=== PATIENT | female | born 1985 | race Caucasian/White ===

== ENCOUNTER → 2016-12-01 | Outpatient (CLI) | payer OTHER ==
[~2016-12-01] MED LIST: CLIN1CAP5 PO; PERI0.126 SWISH-SPIT; PROM25TA5 PO; PROZ40CA PO; SUBUTEX PO
== END ==
LOC: HPND 08:06
PROVIDERS: ATTEND Obstetrics & Gynecology
DX: O30.002 Twin pregnancy, unspecified number of placenta and unspecified number of amniotic sacs, second trimester (principal); O98.512 Other viral diseases complicating pregnancy, second trimester; O99.322 Drug use complicating pregnancy, second trimester
CPT/HCPCS: 76811; 76812; 76817; 76825; 76827; 93325

== ENCOUNTER 2016-12-13 09:45 | Emergency (ER) | payer OTHER ==
[~2016-12-13] VITALS: Ht 162.6 cm; Wt 68.5 kg
[~2016-12-13 09:45] MED LIST changes: -CLIN1CAP5 PO; -PERI0.126 SWISH-SPIT; -PROZ40CA PO; -SUBUTEX PO
[2016-12-13 09:47] VITALS: BP 117/74; PULSE 93; RESP 17; TEMP 99; O2SAT 96
[2016-12-13 10:35] VITALS: BP 124/76; PULSE 91; RESP 18; TEMP 98.7; O2SAT 96
[2016-12-13] MEDS ORDERED: SUBUTEX PO (10:35)
[2016-12-13] MEDS ORDERED: PROZ40CA PO (10:35)
--- NOTE | 2016-12-13 10:58 | PD ---
HPI Chief Complaint: Oral / Dental Pain or Problem Time Seen by Provider: 10:51 Travel History International Travel<30 days: No Contact w/Intl Traveler<30days: No Traveled to known affect area: No History of Present Illness HPI 31-year-old female, approximately 24 weeks with twins, presents to the emergency department with complaint of right lower tooth pain, facial swelling, and bloody drainage from her gums 2 days. Denies fever, vomiting. Denies abdominal pain, cramping, vaginal bleeding, vaginal leakage, vaginal discharge. Her wellness program manager is Dr. Carnes and the patient says she is requesting to receive a phone call. I did call Dr. Carnes and discussed my plan of care. Dr. Carnes informing the patient is on Subutex and to have the patient follow up with her at her next scheduled appointment. She has no known allergies. No other medical complaints. Has not taken any medication or tried any treatments to alleviate her symptoms. Symptoms are moderate in severity. No other modifying factors or associated signs and symptoms. PFSH Past Medical History Hepatitis: Yes (HEP C) Tetanus Vaccination: Unknown Influenza Vaccination: No ?: : 1 Para: 1 Miscarriage: 0 : 0 Past Surgical History Section: Yes (X 1) Gynecologic Surgery: Yes (C SECTION) Tonsillectomy: Yes Social History Alcohol Use: No Tobacco Use: Yes (1PPD) Substance Use: No (PAST) Allergies-Medications (Allergen,Severity, Reaction): Coded Allergies: No Known Allergies (Verified , 12/13/16) Reported Meds & Prescriptions Reported Meds & Active Scripts Active Peridex Liq (Chlorhexidine Gluconate (Mouth) Liq) 0.12% Soln 15 Ml SWISH-SPIT BID 10 Days Clindamycin (Clindamycin HCl) 150 Mg Cap 450 Mg PO Q6H 10 Days Reported [Subutex] 4 Mg PO BID Prozac (Fluoxetine HCl) 40 Mg Cap 40 Mg PO DAILY Review of Systems Except as stated in HPI: all other systems reviewed are Neg Physical Exam Narrative GENERAL: Well-nourished, well-developed female patient, in no acute distress; afebrile, nontoxic-appearing; SKIN: Warm and dry. HEAD: Atraumatic. Normocephalic. Right lower facial edema with tenderness on palpation; without erythema. No lymphadenopathy. EYES: Pupils equal and round. No scleral icterus. No injection or drainage. ENT: Mucosa pink and moist. No erythema or exudates. No uvular edema. No uvular , palatal, or tonsillar deviation. Airway patent. EARS: Bilateral pinnae and external canals appear within normal limits. Bilateral tympanic membranes without erythema, dullness or perforation. MOUTH: Mucous membranes moist, no lesions, tongue and gums appear normal. Poor dentition throughout and partially edentulous. Tooth #27 with tenderness on palpation; surrounding gingiva is edematous and minimal amount of bloody drainage noted. No obvious abscess noted. NECK: Trachea midline. No lymphadenopathy. CARDIOVASCULAR: Regular rate. RESPIRATORY: No accessory muscle use. GASTROINTESTINAL: . MUSCULOSKELETAL: No obvious deformities. No clubbing. No cyanosis. No edema. NEUROLOGICAL: Awake and alert. Oriented 3. No obvious cranial nerve deficits. Motor grossly within normal limits. Normal speech. PSYCHIATRIC: Appropriate mood and affect; insight and judgment normal. Data Data Last Documented VS Vital Signs Date Time Temp Pulse Resp B/P (MAP) Pulse Ox O2 Delivery O2 Flow Rate FiO2 12/13/16 10:35 76 18 12/13/16 10:35 98.7 124/76 (92) 96 Room Air Orders Orders Clindamycin Inj (Cleocin Inj) (12/13/16 11:15) Acetaminophen (Tylenol) (12/13/16 11:15) MDM Medical Decision Making Medical Screen Exam Complete: Yes Emergency Medical Condition: Yes Medical Record Reviewed: Yes Differential Diagnosis Dental abscess, dentalgia, dental cavities, gingivitis Narrative Course 31-year-old female, 24 weeks with twins, with right lower dental abscess. Patient is afebrile and nontoxic-appearing. She denies fever, vomiting. Denies abdominal pain, cramping, vaginal discharge, bilateral leakage. I called and spoke with her wellness program manager, Dr. Carnes, and discussed my plan of care. The patient will follow up with Dr. Carnes at her next scheduled appointment. Patient provided emergency dental information sheet. Clindamycin 600 mg IM administered in the ER. Clindamycin prescribed for home. Instructed the patient to follow up with dentist. Instructed patient to follow up with primary care provider. Patient verbalizes understanding and agreement with treatment plan. Patient is medically cleared and stable for discharge. Discussed reasons to return to the emergency department. Patient agrees with treatment plan. The patients vital signs are stable and the patient is stable for outpatient follow-up and treatment. Patient discharged home, stable and in no acute distress. Diagnosis Primary Impression: Dental abscess Referrals: Lizz Carnes MD Dentist Primary Care Physician Patient Instructions: Dental Abscess (ED), General Instructions Additional Instructions: Complete full course of antibiotics Ibuprofen or Tylenol as directed and as needed to reduce pain and inflammation Use Peridex mouth rinse as directed for oral hygiene Warm or cool compresses to the affected area Follow-up with dentist Follow-up with primary care provider Return to emergency department immediately with worsening of symptoms Med/Other Pt SpecificInfo: Prescription(s) given Scripts Chlorhexidine Gluconate (Mouth) Liq (Peridex Liq) 0.12% Soln 15 ML SWISH-SPIT BID for 10 Days, #300 ML 0 Refills Prov: Milvia Garcia 12/13/16 Clindamycin (Clindamycin) 150 Mg Cap 450 MG PO Q6H for Infection for 10 Days, #120 CAP 0 Refills Prov: Milvia Garcia 12/13/16 Disposition: 01 DISCHARGE HOME Condition: Stable Milvia Garcia Dec 13, 2016 10:58
[2016-12-13] MEDS ORDERED: CLIN1CAP5 PO (11:04)
[2016-12-13] MEDS ORDERED: PERI0.126 SWISH-SPIT (11:04)
[2016-12-13] MEDS ORDERED: ACETAMINOPHEN 325 MG TAB PO ONE (11:15)
[2016-12-13] MEDS ORDERED: CLINDAMYCIN PHOS 600 MG/4 ML VIAL IM ONE (11:15)
[2016-12-13 12:21] VITALS: BP 92/50
== END 2016-12-13 12:24 | disposition home or self-care (01) ==
LOC: NEPD 09:45
DX: O26.892 Other specified pregnancy related conditions, second trimester (principal); K04.7 Periapical abscess without sinus; Z72.0 Tobacco use
CPT/HCPCS: 96372

== ENCOUNTER 2017-01-28 19:39 | Emergency (ER) | payer OTHER ==
[~2017-01-28 19:39] MED LIST changes: +CLIN150C14 PO; +PERI0.126 SWISH-SPIT; -PROM25TA5 PO; +PROZ40CA PO; +SUBUTEX PO
[2017-01-28] MEDS ORDERED: ONDANSETRON HCL 4 MG/2 ML VIAL ONE (20:37)
[2017-01-28] MEDS ORDERED: ONDANSETRON HCL 4 MG/2 ML VIAL IV PUSH ONE ×2 (20:45→21:00)
[2017-01-28 20:50] VITALS: RESP 18
[2017-01-28 20:57] LABS: BLOOD, URINE NEG (NEG); COMMENT (UR) CULT NOT INDICATED; CULTURE IF INDICATED CULT NOT INDICATED; GLUCOSE,URINE NEG (NEG); KETONE, URINE 10 mg/dL (NEG); MUCUS URINE FEW /lpf (OCC); NITRITE,URINE NEG (NEG); PH, URINE 6.5 (5.0-8.5); SQUAMOUS EPITHELIAL CELL URINE 4 /hpf (0-5); URINE COLOR YELLOW (YELLW/STRAW)
--- NOTE | 2017-01-28 21:06 | PD ---
HPI Chief Complaint N/V Date Seen: Jan 28, 2017 Time Seen: 20:09 Travel History International Travel<30 Days: No Contact w/Intl Traveler<30Days: No Known Affected Area: No History of Present Illness HPI Pt is a 31y/o @ 32.6wks with bill twins. She has PNC with EVELINE. She presents this evening c/o N/V x6 (non-bloody, non-bilious). No sick contacts. No one else ill from similar foods eaten. She reports +FMx2, no LOF or VB. is c/b: -- IVDA (heroine, pills) -- subutex use -- mono-di twins with discordant growth -- h/o CS x1 Weeks Gestation: 32 Para: 1 : 2 Last Menstrual Period: Jan 28, 2017 History Past Medical History Narrative Medical IVDA Obstetric History Obstetric History CSx1 Past Surgical History Narrative Surgical CSx1 Family History Family History: Negative Social History Alcohol Use: No Tobacco Use: Yes Substance Abuse: Yes (IVDA (heroine, opioids), on subutex) Allergies-Medications (Allergen,Severity, Reaction): Coded Allergies: No Known Allergies (Verified Allergy, Unknown, 01/28/17) Home Meds Active Scripts Chlorhexidine Gluconate (Mouth) Liq (Peridex Liq) 0.12% Soln, 15 ML SWISH-SPIT BID for 10 Days, #300 ML 0 Refills Prov:Milvia GarciaP 12/13/16 Clindamycin (Clindamycin) 150 Mg Cap, 450 MG PO Q6H for Infection for 10 Days, # 120 CAP 0 Refills Prov:Milvia Garcia MEDICAL LABORATORY SPECIALIST 12/13/16 Reported Medications [Subutex] No Conflict Check, 4 MG PO BID 12/13/16 Fluoxetine (Prozac) 40 Mg Cap, 40 MG PO DAILY, #30 CAP 0 Refills 12/13/16 Review of Systems Except as stated in HPI: all other systems reviewed are Neg Physical Exam Vital Signs Date Time Temp Pulse Resp B/P (MAP) Pulse Ox O2 Delivery O2 Flow Rate FiO2 01/28/17 20:50 18 Narrative General: well developed, well nourished, no acute distress HEENT: normocephalic atraumatic, extraocular movements intact, neck supple Abdomen: soft, gravid, nontender, nondistended Extremities: full range of motion Skin: normal coloration, no rashes, no suspicious skin lesions noted Neurologic: cranial nerves 2-12 grossly intact, normal muscle tone, normal gait Psychiatric: normal mood and affect, appropriate FHTs: 130s x2, +accels x2, no decels x2, moderate variability x2, reactive x2 [place]: regular ctx (became irregular with IVF) Cvx: cl/th/hi Data Data Orders Orders Urinalysis - C+S If Indicated (01/28/17 20:31) Drug Screen, Random Urine (01/28/17 20:31) Ondansetron Inj (Zofran Inj) (01/28/17 20:37) Ondansetron Inj (Zofran Inj) (01/28/17 20:45) Vital Signs (Adult) .ON ADMISSION (01/28/17 20:47) ^ Labor Status (01/28/17 20:47) ^ Non Stress Test (01/28/17 20:47) Ondansetron Inj (Zofran Inj) (01/28/17 21:00) Labs Laboratory Tests Test 01/28/17 20:00 MDM Plan 31y/o @ 32.6wks with N/V -- FHTs cat 1x2 -- UA neg for UTI -- ctx improving with IVF bolus x2 (cvx closed) -- no emesis in triage, nausea improved with zofran, tolerating PO Dispo: d/c home with precautions Diagnosis Diagnosis: Primary Impression: 32 weeks gestation of Additional Impressions: Monochorionic diamniotic twin gestation in third trimester Discordant growth in twin gestation Polysubstance (excluding opioids) dependence complicated by subutex maintenance, antepartum Nausea and vomiting during Viral hepatitis complicating , third trimester Jorge Still MD Jan 28, 2017 21:06
== END 2017-01-28 22:26 | disposition home or self-care (01) ==
LOC: HOBED 19:39
DX: O21.9 Vomiting of pregnancy, unspecified (principal); O98.413 Viral hepatitis complicating pregnancy, third trimester; O99.323 Drug use complicating pregnancy, third trimester; F19.20 Other psychoactive substance dependence, uncomplicated; O30.033 Twin pregnancy, monochorionic/diamniotic, third trimester; O99.333 Smoking (tobacco) complicating pregnancy, third trimester; Z3A.32 32 weeks gestation of pregnancy; Z79.899 Other long term (current) drug therapy
CPT/HCPCS: 59025; 80307; 81001; 96361; 96374; 99284; J2405; 96375

== ENCOUNTER 2017-02-10 15:14 | Inpatient (IN) | payer OTHER ==
[~2017-02-10] VITALS: Ht 162.6 cm; Wt 74.0 kg
[2017-02-10] VITALS (15 sets, daily range): BP systolic 113–129; BP diastolic 61–84; PULSE 62–95; RESP 14–18; TEMP 98–98.7; O2SAT 96–99
[2017-02-10] MEDS ORDERED: LACTATED RINGER'S 1000 ML INJ 1,000 ML IV ONE (15:41)
[2017-02-10] MEDS ORDERED: LACTATED RINGER'S 1000 ML INJ 1,000 ML IV SCH ×2 (16:11→23:05)
[2017-02-10 16:34] LABS: AUTOMATED NEUTROPHIL # 10.3 TH/MM3 (1.8-7.7); BASOPHIL % 0.3 % (0.0-2.0); EOSINOPHIL # 0.9 TH/MM3 (0-0.4); EOSINOPHIL % 5.7 % (0.0-4.0); HEMATOCRIT 32.2 % (35.0-46.0); LYMPH % 20.5 % (9.0-44.0); LYMPHOCYTE # 3.2 TH/MM3 (1.0-4.8); MEAN CELL VOLUME 87.7 FL (80.0-100.0); MEAN CORPUSCULAR HEMOGLOBIN 29.3 PG (27.0-34.0); MEAN CORPUSCULAR HGB CONC 33.4 % (32.0-36.0); MONO % 7.4 % (0.0-8.0); NEUT % 66.1 % (16.0-70.0); PLATELET COUNT 232 TH/MM3 (150-450); RED BLOOD COUNT 3.67 MIL/MM3 (4.00-5.30); RED CELL DISTRIBUTION WIDTH 15.2 % (11.6-17.2); WHITE BLOOD COUNT 15.6 TH/MM3 (4.0-11.0)
[2017-02-10 16:37] LABS: BACTERIA, URINE RARE /hpf; BLOOD, URINE NEG (NEG); COMMENT (UR) CULT NOT INDICATED; CULTURE IF INDICATED CULT NOT INDICATED; GLUCOSE,URINE NEG (NEG); KETONE, URINE NEG (NEG); MUCUS URINE FEW /lpf (OCC); NITRITE,URINE NEG (NEG); PH, URINE 6.5 (5.0-8.5); SQUAMOUS EPITHELIAL CELL URINE 1 /hpf (0-5); URINE COLOR YELLOW (YELLW/STRAW)
[2017-02-10] MEDS ORDERED: DEXAMETHASONE SOD PHOS PF 10 MG/ML VIAL ONE (16:39)
[2017-02-10] MEDS ORDERED: ROPIVACAINE 0.5% PF INJ 30 ML VIAL ONE (16:40)
[2017-02-10] MEDS ORDERED: ceFAZolin 2 GM PREMIX 50 ML IV SCH (16:45)
[2017-02-10 16:46] LABS: HEMO FLAGS AUTO DIFF
[2017-02-10] MEDS ORDERED: CITRIC ACID-SODIUM CITRATE LIQ 30 ML UDC PO SCH (17:15)
[2017-02-10 17:28] LABS: BANDS 1 % (0-6); EOSINOPHILS 3 % (0-4); METAMYELOCYTES 4 % (0-1); MYELOCYTES 1 % (0-0); NEUTROPHIL # MANUAL DIFF 12.3 TH/MM3 (1.8-7.7); PLATELET ESTIMATE SMEAR NORMAL (NORMAL); PLATELET MORPHOLOGY NORMAL (NORMAL); POLYS (SEG NEUTROPHILS) 73 % (16-70); SCAN/DIFF FINAL DIFF MANUAL; WBC DIFF SAMPLE 100
--- NOTE | 2017-02-10 18:11 | PD.OB.DELI ---
Procedure Note Section Procedure Pre Op Diagnosis: (1) Discordant growth in twin gestation (2) Substance use disorder (3) Previous delivery affecting Post Op Diagnosis: Performed by Lizz Carnes Procedure: Repeat Low Transverse Sec Indication for delivery: Other (growth discordancy and IUGR of twin A) Previous condition: None Informed consent obtained: For anesthesia, For procedure Confirmed correct: Patient, Procedure, Site, Time-out taken Anesthesia: Spinal Medication prior to procedure: As documented in eMAR Monitoring during procedure: Blood pressure monitoring Urinary catheter: Inserted using sterile technique, To dependent drainage Sterile preparation: Duraprep, In usual fashion, With 2% chlorexidine ( Hibiclens) Position: Supine with wedge to right side Operative Features Skin Incision: Pfannenstiel Uterine Incision: Low transverse w/knife / blunt ext Membranes Ruptured: Artificially Presentation: Occiput anterior, Vertex Delivery date: Feb 10, 2017 Delivery time: 18:08 Delivery of infant: Assisted Infant: Female, Multiple One Minute : 5 Five Minute : 6 (Twin A 5 at one 6 at five 8 at ten), 10 Weight: 4 pounds 2 ounces and 5 pounds 5 ounces Status of : Viable, Cord blood, Umbilical cord, Nursery present, Resuscitation required Placenta delivered: Intact Medications: Antibiotics, Oxytocin Estimated blood loss: 500 Procedure tolerated: Well Maternal Condition: Stable Baby Complications: Respiratory distress Condition: Stable (Twin A 5 at one, 6 at five and 8 at 10), Serious ( twin A 5,6,9 apgars' twin B 2,3,9, apgars) Lizz Carnes MD Feb 10, 2017 18:11
[2017-02-10] MEDS ORDERED: ONDANSETRON HCL 4 MG/2 ML VIAL IV PUSH PRN (18:15)
[2017-02-10] MEDS ORDERED: ACETAMINOPHEN 1000 MG/100 ML 100 ML IV ONE (18:15)
[2017-02-10] MEDS ORDERED: SODIUM CHLORIDE 0.9% FLUSH 10 ML FLUSH IV FLUSH PRN (18:15)
[2017-02-10] MEDS ORDERED: oxyCODONE/ACETAMINOPHEN 5 MG/325 MG TAB PO PRN (18:15)
[2017-02-10] MEDS ORDERED: SIMETHICONE 80 MG CHEWABLE TAB PO PRN (18:15)
[2017-02-10] MEDS ORDERED: DOCUSATE SODIUM 50 MG/SENNA 8.6 MG TAB PO PRN (18:15)
[2017-02-10] MEDS ORDERED: ZOLPIDEM TARTRATE 5 MG TAB PO PRN (18:15)
[2017-02-10] MEDS ORDERED: OXYTOCIN 30 UNITS-500ML PREMIX 500 ML IV ONE (18:15)
[2017-02-10 18:37] LABS: BLOOD GAS VENOUS BASE EXCESS -1.2 mmol/L (-2-2); BLOOD GAS VENOUS HCO3 24 mmol/L (22-26); BLOOD GAS VENOUS O2 HGB SAT 16 % (70-76); BLOOD GAS VENOUS PCO2 49 mmHg (44-48); BLOOD GAS VENOUS PO2 12 mmHg (35-40); BLOOD GAS VENOUS pH 7.31 (7.360-7.400); TEMP CORR TO 98.6
[2017-02-10 18:38] LABS: CRITICAL VALUE YES; DRAW SITE CORD; FIO2 21 %; STAT YES
[2017-02-10 18:39] LABS: BLOOD GAS VENOUS BASE EXCESS -1.6 mmol/L (-2-2); BLOOD GAS VENOUS HCO3 23 mmol/L (22-26); BLOOD GAS VENOUS O2 CONTENT 8.5 Vol % (9.0-17.0); BLOOD GAS VENOUS O2 HGB SAT 39 % (70-76); BLOOD GAS VENOUS PCO2 40 mmHg (44-48); BLOOD GAS VENOUS PO2 19 mmHg (35-40); BLOOD GAS VENOUS pH 7.37 (7.360-7.400); CRITICAL VALUE YES; FIO2 21 %; TEMP CORR TO 98.6
[2017-02-10 18:40] LABS: DRAW SITE CORD; STAT YES
[2017-02-10] MEDS ORDERED: EPIDURAL-DIPHENHYDRAMINE HCL 50 MG CAP PO PRN (19:00)
[2017-02-10] MEDS ORDERED: EPIDURAL-NALOXONE HCL 0.4 MG/ML AMP IV PUSH PRN (19:00)
[2017-02-10] MEDS ORDERED: EPIDURAL-DO NOT ADMINISTER ANTICOAGULANTS PRN (19:00)
[2017-02-10] MEDS ORDERED: EPIDURAL-DIPHENHYDRAMINE HCL 50 MG/ML VIAL IV PUSH PRN (19:00)
[2017-02-10] MEDS ORDERED: EPIDURAL-NO SYSTEMIC NARCOTICS PRN (19:00)
[2017-02-10] MEDS ORDERED: SODIUM CHLORIDE 0.9% FLUSH 10 ML FLUSH IV FLUSH SCH (21:00)
[2017-02-11 02:05] VITALS: RESP 18
[2017-02-11 03:02] VITALS: RESP 16
[2017-02-11 04:02] VITALS: BP 128/60; PULSE 67; RESP 16; TEMP 98.4
[2017-02-11] MEDS ORDERED: OXYTOCIN 30 UNITS-500ML PREMIX 500 ML IV PRN (04:15)
[2017-02-11] MEDS: IBUPROFEN 600 MG TAB PO PRN ×2 (04:55→16:47)
[2017-02-11 05:34] LABS: AUTOMATED NEUTROPHIL # 21.8 TH/MM3 (1.8-7.7); BASOPHIL # 0.1 TH/MM3 (0-0.2); BASOPHIL % 0.2 % (0.0-2.0); EOSINOPHIL % 0.1 % (0.0-4.0); HEMATOCRIT 29.1 % (35.0-46.0); LYMPH % 9.7 % (9.0-44.0); LYMPHOCYTE # 2.5 TH/MM3 (1.0-4.8); MEAN CELL VOLUME 88.4 FL (80.0-100.0); MEAN CORPUSCULAR HEMOGLOBIN 29.9 PG (27.0-34.0); MEAN CORPUSCULAR HGB CONC 33.8 % (32.0-36.0); MONO % 4.8 % (0.0-8.0); NEUT % 85.2 % (16.0-70.0); PLATELET COUNT 235 TH/MM3 (150-450); RED BLOOD COUNT 3.29 MIL/MM3 (4.00-5.30); WHITE BLOOD COUNT 25.7 TH/MM3 (4.0-11.0)
[2017-02-11] MEDS: oxyCODONE/ACETAMINOPHEN 5 MG/325 MG TAB PO PRN ×2 (05:45→16:47)
[2017-02-11 05:51] LABS: HEMO FLAGS AUTO DIFF
--- NOTE | 2017-02-11 07:45 | HHI.OB ---
Subjective Post Operative Day: 1 Remarks s/p CD for IUGR in twins with Dr. Carnes Objective Vitals/I&O Vital Signs Date Time Temp Pulse Resp B/P (MAP) Pulse Ox O2 Delivery O2 Flow Rate FiO2 02/11/17 04:02 98.4 67 16 128/60 (82) 02/11/17 03:02 16 02/11/17 02:05 18 02/10/17 23:54 98.4 18 02/10/17 23:53 95 125/68 (87) 02/10/17 23:05 16 02/10/17 20:58 98.7 72 16 129/76 (93) 02/10/17 19:45 98.2 02/10/17 19:30 15 98 02/10/17 19:29 65 127/84 (98) 02/10/17 19:14 123/81 (95) 02/10/17 19:14 63 14 96 02/10/17 19:00 63 17 119/78 (92) 98 02/10/17 18:44 97 02/10/17 18:44 62 16 114/72 (86) 02/10/17 18:29 115/67 (83) 02/10/17 18:27 69 16 113/61 (78) 99 02/10/17 18:15 99 02/10/17 18:12 98.0 16 02/10/17 18:12 72 116/61 (79) 02/10/17 15:56 98.1 Result Diagram: 02/11/17 0445 Objective Remarks GENERAL: Well-nourished, well-developed patient. Resting in bed. CARDIOVASCULAR: Regular rate and rhythm without murmurs, gallops, or rubs. RESPIRATORY: Breath sounds equal bilaterally. No accessory muscle use. ABDOMEN/GI: Abdomen soft, non-tender, bowel sounds present. Incision: bandage in place Fundus: Firm, non-tender at umbilicus. GENITOURINARY: Light to moderate bleeding. EXTREMITIES: No cyanosis or edema, non-tender, without signs of DVT. Medications and IVs Current Medications Medications (Trade) Dose Ordered Sig/Rosa Route Start Time Stop Time Status Last Admin Lactated Ringer's 1,000 ml @ 150 mls/hr Q6H40M IV 02/10/17 16:11 02/10/17 16:06 Cefazolin Sodium/ Dextrose 50 ml @ 100 mls/hr OFFSET PRINTER IV 02/10/17 16:45 02/14/17 16:44 02/10/17 16:41 (Bicitra Liq) 30 ml OFFSET PRINTER PO 02/10/17 17:15 02/14/17 17:14 02/10/17 16:41 (Flu (Quadrivalent) Vaccine Inj) 0.5 ml ONCE ONCE IM 02/11/17 10:00 02/11/17 10:01 Lactated Ringer's 1,000 ml @ 100 mls/hr Q10H IV 02/10/17 23:05 02/11/17 19:04 02/11/17 02:10 Oxytocin 500 ml @ 100 mls/hr UNSCH X1 PRN IV 02/11/17 04:15 02/12/17 04:14 02/10/17 20:33 (NS Flush) 2 ml BID IV FLUSH 02/10/17 21:00 (NS Flush) 2 ml UNSCH PRN IV FLUSH 02/10/17 18:15 (Mylicon Chew) 80 mg QID PRN PO 02/10/17 18:15 (Motrin) 600 mg Q6H PRN PO 02/10/17 18:15 02/11/17 04:55 (Percocet 5-325 Mg) 1 tab Q4H PRN PO 02/10/17 18:15 (Percocet 5-325 Mg) 2 tab Q4H PRN PO 02/10/17 18:15 02/11/17 05:45 (Regina-Colace) 2 tab Q12H PRN PO 02/10/17 18:15 (Ambien) 5 mg HS PRN PO 02/10/17 18:15 02/10/17 21:26 (M-M-R Ii Inj) 0.5 ml ONCE ONCE SQ 02/11/17 16:00 02/11/17 16:01 (Boostrix Inj) 0.5 ml ONCE ONCE IM 02/11/17 16:00 02/11/17 16:01 (Zofran Inj) 4 mg Q6H PRN IV PUSH 02/10/17 18:15 Miscellaneous Information NO SYSTEMIC NARCOTICS TO BE GIVEN FO... UNSCH PRN .XX 02/10/17 19:00 02/11/17 18:59 (Narcan Inj) 0.4 mg UNSCH PRN IV PUSH 02/10/17 19:00 02/11/17 18:59 (Benadryl Inj) 25 mg Q6H PRN IV PUSH 02/10/17 19:00 02/11/17 18:59 (Benadryl) 50 mg Q6H PRN PO 02/10/17 19:00 02/11/17 18:59 02/10/17 21:26 Miscellaneous Information ALL NURSING DEPARTMENTS UNSCH PRN .XX 02/10/17 19:00 02/11/17 18:59 Assessment/Plan Problem List: (1) S/P repeat low transverse ICD Codes: Z98.891 - History of uterine scar from previous surgery Status: Acute (2) Twin delivered by section in hospital ICD Codes: Z38.31 - Twin liveborn infant, delivered by Status: Acute (3) Substance use disorder ICD Codes: F19.90 - Other psychoactive substance use, unspecified, uncomplicated Status: Chronic (4) Discordant growth in twin gestation ICD Codes: O30.009 - Twin , unspecified number of placenta and unspecified number of amniotic sacs, unspecified trimester; O36.5990 - Maternal care for other known or suspected poor growth, unspecified trimester, not applicable or unspecified Status: Acute Assessment and Plan POD#1 supportive care encouraged to ambulate, shower, remove bandage today infants in NICU for prematurity anticipate d/c on POD#3 Discharge Planning POD#3 anticipated Isis Pro MD Feb 11, 2017 07:45
[2017-02-11 07:54] LABS: BANDS 23 % (0-6); NEUTROPHIL # MANUAL DIFF 23.6 TH/MM3 (1.8-7.7); PLATELET ESTIMATE SMEAR NORMAL (NORMAL); PLATELET MORPHOLOGY NORMAL (NORMAL); POLYS (SEG NEUTROPHILS) 69 % (16-70); WBC DIFF SAMPLE 100
[2017-02-11 07:55] LABS: SCAN/DIFF FINAL DIFF MANUAL
[2017-02-11 08:00] VITALS: BP 105/51; PULSE 62; RESP 15; TEMP 98.1; O2SAT 94
[2017-02-11] MEDS: BUPRENORPHINE HCL 8 MG SUBLINGUAL TAB SL SCH ×2 (09:59→21:01)
[2017-02-11] MEDS ORDERED: INFLUENZA VIRUS VACCINE (QUADRIVALENT) 0.5 ML SYR IM ONE (10:00)
[2017-02-11 12:00] VITALS: BP 105/50; PULSE 61; RESP 16; TEMP 98.6
[2017-02-11] MEDS ORDERED: MEASLES, MUMPS, RUBELLA VACCINE 0.5 ML VIAL SQ ONE (16:00)
[2017-02-11] MEDS ORDERED: DIPHTH/TETANUS/ACEL PERTUSSIS (BOOSTER) 0.5 ML VIAL/PFS IM ONE (16:00)
[2017-02-11 16:05] VITALS: BP 105/57; PULSE 57; RESP 18; TEMP 98.4; O2SAT 97
[2017-02-12] MEDS: oxyCODONE/ACETAMINOPHEN 5 MG/325 MG TAB PO PRN ×3 (00:19→17:42)
[2017-02-12] MEDS: IBUPROFEN 600 MG TAB PO PRN ×3 (00:19→17:42)
[2017-02-12 08:05] VITALS: BP 110/79; PULSE 62; RESP 14; TEMP 97.8
[2017-02-12] MEDS: BUPRENORPHINE HCL 8 MG SUBLINGUAL TAB SL SCH ×2 (08:45→21:12)
--- NOTE | 2017-02-12 09:51 | HHI.OB ---
Subjective Post Operative Day: 2 Remarks Doing very well. No complaints of pain. Frustrated that DCF working stated no buprenorphine in her UDS. I left message for DCF worker that hospital UDS does not check for buprenorphine and that my monthly UDS shows compliance. Lochia not heavy. Wants to nurse Babies doing well Objective Vitals/I&O Vital Signs Date Time Temp Pulse Resp B/P (MAP) Pulse Ox O2 Delivery O2 Flow Rate FiO2 02/12/17 08:05 97.8 62 14 110/79 (89) 02/11/17 16:05 98.4 02/11/17 16:05 57 18 105/57 (73) 97 02/11/17 12:00 61 16 105/50 (68) 02/11/17 12:00 98.6 Result Diagram: 02/11/17 0445 Objective Remarks GENERAL: Well-nourished, well-developed patient. Resting in bed. CARDIOVASCULAR: Regular rate and rhythm without murmurs, gallops, or rubs. RESPIRATORY: Breath sounds equal bilaterally. No accessory muscle use. ABDOMEN/GI: Abdomen soft, non-tender, bowel sounds present. Incision: bandage in place Fundus: Firm, non-tender at umbilicus. GENITOURINARY: Light to moderate bleeding. EXTREMITIES: No cyanosis or edema, non-tender, without signs of DVT. Medications and IVs Current Medications Medications (Trade) Dose Ordered Sig/Rosa Route Start Time Stop Time Status Last Admin Lactated Ringer's 1,000 ml @ 150 mls/hr Q6H40M IV 02/10/17 16:11 02/10/17 16:06 Cefazolin Sodium/ Dextrose 50 ml @ 100 mls/hr SUPERVISOR DUMPING IV 02/10/17 16:45 02/14/17 16:44 02/10/17 16:41 (Bicitra Liq) 30 ml SUPERVISOR DUMPING PO 02/10/17 17:15 02/14/17 17:14 02/10/17 16:41 (NS Flush) 2 ml BID IV FLUSH 02/10/17 21:00 (NS Flush) 2 ml UNSCH PRN IV FLUSH 02/10/17 18:15 (Mylicon Chew) 80 mg QID PRN PO 02/10/17 18:15 (Motrin) 600 mg Q6H PRN PO 02/10/17 18:15 02/12/17 08:45 (Percocet 5-325 Mg) 1 tab Q4H PRN PO 02/10/17 18:15 (Percocet 5-325 Mg) 2 tab Q4H PRN PO 02/10/17 18:15 02/12/17 00:19 (Regina-Colace) 2 tab Q12H PRN PO 02/10/17 18:15 (Ambien) 5 mg HS PRN PO 02/10/17 18:15 02/10/17 21:26 (Zofran Inj) 4 mg Q6H PRN IV PUSH 02/10/17 18:15 (Buprenorphine) 4 mg BID SL 02/11/17 10:00 02/12/17 08:45 Assessment/Plan Problem List: (1) S/P repeat low transverse ICD Codes: Z98.891 - History of uterine scar from previous surgery Status: Acute (2) Twin delivered by section in hospital ICD Codes: Z38.31 - Twin liveborn infant, delivered by Status: Acute (3) Substance use disorder ICD Codes: F19.90 - Other psychoactive substance use, unspecified, uncomplicated Status: Chronic (4) Discordant growth in twin gestation ICD Codes: O30.009 - Twin , unspecified number of placenta and unspecified number of amniotic sacs, unspecified trimester; O36.5990 - Maternal care for other known or suspected poor growth, unspecified trimester, not applicable or unspecified Status: Acute Assessment and Plan POD#1 supportive care encouraged to ambulate, shower, remove bandage today infants in NICU for prematurity anticipate d/c on POD#3 POD 2 doing well and reassured that I will communicate with DCF about her compliance would like discharge postponed until POD 4 or at least convert to stay close for a few days so that she can have easy access to infants. repeat cbc for elevated white count with no signs of infection Discharge Planning POD#3 anticipated Lizz Carnes MD Feb 12, 2017 09:51
[2017-02-12] MEDS ORDERED: FERROUS SULFATE 325 MG (65 MG ELEMENTAL IRON) TAB PO ONE (10:15)
[2017-02-12 11:12] LABS: AUTOMATED NEUTROPHIL # 10.4 TH/MM3 (1.8-7.7); BASOPHIL # 0.1 TH/MM3 (0-0.2); BASOPHIL % 0.4 % (0.0-2.0); EOSINOPHIL # 0.8 TH/MM3 (0-0.4); EOSINOPHIL % 5.4 % (0.0-4.0); HEMATOCRIT 25.2 % (35.0-46.0); LYMPH % 16.4 % (9.0-44.0); LYMPHOCYTE # 2.4 TH/MM3 (1.0-4.8); MEAN CELL VOLUME 87.2 FL (80.0-100.0); MEAN CORPUSCULAR HEMOGLOBIN 29.4 PG (27.0-34.0); MEAN CORPUSCULAR HGB CONC 33.7 % (32.0-36.0); MONO % 7.3 % (0.0-8.0); NEUT % 70.5 % (16.0-70.0); PLATELET COUNT 230 TH/MM3 (150-450); RED BLOOD COUNT 2.89 MIL/MM3 (4.00-5.30); RED CELL DISTRIBUTION WIDTH 15.1 % (11.6-17.2); WHITE BLOOD COUNT 14.7 TH/MM3 (4.0-11.0)
[2017-02-12 11:16] LABS: HEMO FLAGS AUTO DIFF
[2017-02-12 11:45] LABS: BANDS 9 % (0-6); BASOPHILS 1 % (0-2); EOSINOPHILS 8 % (0-4); MYELOCYTES 2 % (0-0); NEUTROPHIL # MANUAL DIFF 11.5 TH/MM3 (1.8-7.7); PLATELET ESTIMATE SMEAR NORMAL (NORMAL); POLYS (SEG NEUTROPHILS) 67 % (16-70); WBC DIFF SAMPLE 100
[2017-02-12 11:46] LABS: PLATELET MORPHOLOGY NORMAL (NORMAL); SCAN/DIFF FINAL DIFF MANUAL
[2017-02-12 20:55] VITALS: BP 122/74; PULSE 82; RESP 16; TEMP 98
[2017-02-13 08:00] VITALS: BP_SYST 97; BP_DIAS 58; BP_DIAS 68; BP_DIAS 72; PULSE 68; PULSE 74; RESP 16; RESP 18; TEMP 97.7; TEMP 97.8
--- NOTE | 2017-02-13 09:17 | HHI.OB ---
Subjective Post Operative Day: 3 Remarks ambulating, tolerating diet, voiding, had BM, mild pain with extended walking/ activity but overall doing well Objective Vitals/I&O Vital Signs Date Time Temp Pulse Resp B/P (MAP) Pulse Ox O2 Delivery O2 Flow Rate FiO2 02/12/17 20:55 98.0 82 16 122/74 (90) Result Diagram: 02/12/17 1102 Objective Remarks GENERAL: Well-nourished, well-developed patient. Standing up talking on phone when I entered room. CARDIOVASCULAR: Regular rate and rhythm without murmurs, gallops, or rubs. RESPIRATORY: Breath sounds equal bilaterally. No accessory muscle use. ABDOMEN/GI: Abdomen soft, non-tender, bowel sounds present. Incision: incision c/d/i Fundus: Firm, non-tender at umbilicus. GENITOURINARY: Light bleeding. EXTREMITIES: No cyanosis or edema, non-tender, without signs of DVT. Medications and IVs Current Medications Medications (Trade) Dose Ordered Sig/Rosa Route Start Time Stop Time Status Last Admin Lactated Ringer's 1,000 ml @ 150 mls/hr Q6H40M IV 02/10/17 16:11 02/10/17 16:06 Cefazolin Sodium/ Dextrose 50 ml @ 100 mls/hr CUSTOMER DEVELOPMENT MANAGER IV 02/10/17 16:45 02/14/17 16:44 02/10/17 16:41 (Bicitra Liq) 30 ml CUSTOMER DEVELOPMENT MANAGER PO 02/10/17 17:15 02/14/17 17:14 02/10/17 16:41 (NS Flush) 2 ml BID IV FLUSH 02/10/17 21:00 (NS Flush) 2 ml UNSCH PRN IV FLUSH 02/10/17 18:15 (Mylicon Chew) 80 mg QID PRN PO 02/10/17 18:15 (Motrin) 600 mg Q6H PRN PO 02/10/17 18:15 02/12/17 17:42 (Percocet 5-325 Mg) 1 tab Q4H PRN PO 02/10/17 18:15 (Percocet 5-325 Mg) 2 tab Q4H PRN PO 02/10/17 18:15 02/12/17 17:42 (Regina-Colace) 2 tab Q12H PRN PO 02/10/17 18:15 (Ambien) 5 mg HS PRN PO 02/10/17 18:15 02/10/17 21:26 (Zofran Inj) 4 mg Q6H PRN IV PUSH 02/10/17 18:15 (Buprenorphine) 4 mg BID SL 02/11/17 10:00 02/12/17 21:12 Assessment/Plan Problem List: (1) S/P repeat low transverse ICD Codes: Z98.891 - History of uterine scar from previous surgery Status: Acute (2) Twin delivered by section in hospital ICD Codes: Z38.31 - Twin liveborn infant, delivered by Status: Acute (3) Substance use disorder ICD Codes: F19.90 - Other psychoactive substance use, unspecified, uncomplicated Status: Chronic (4) Discordant growth in twin gestation ICD Codes: O30.009 - Twin , unspecified number of placenta and unspecified number of amniotic sacs, unspecified trimester; O36.5990 - Maternal care for other known or suspected poor growth, unspecified trimester, not applicable or unspecified Status: Acute Assessment and Plan POD#3 meeting all d/c criteria due to infants in NICU for prematurity plan for stay-close room after discharge WBC decreased from 25 >14 over past 24h; no sign of infection office f/u 7-10d w Dr. Carnes Discharge Planning routine Isis Pro MD Feb 13, 2017 09:17
[2017-02-13] MEDS ORDERED: IBUP1TAB7 PO (09:18)
[2017-02-13] MEDS: BUPRENORPHINE HCL 8 MG SUBLINGUAL TAB SL SCH (09:19)
--- NOTE | 2017-02-13 09:19 | HHI.DCPOC ---
Discharge Care Plan Diagnosis: (1) S/P repeat low transverse Your Health Problems Are: delivery Report Symptoms to Your Doctor -Temperature above 100.5 degrees -Redness, of incision or excessive or foul smelling drainage -Unusual pain or calf pain -Increased vaginal bleeding -Painful or difficulty urinating -Feelings of extreme sadness or anxiety after 2 weeks Goals to Promote Your Health * To prevent worsening of your condition and complications * To maintain your health at the optimal level Directions to Meet Your Goals Take your medications as prescribed Follow your dietary instruction Follow activity as directed Ensure plenty of rest for recovery Drink fluids for hydration Keep your appointments as scheduled Take your immunizations and boosters as scheduled If your symptoms worsen call your PCP, if no PCP go to Urgent Care Center or Emergency Room Smoking is Dangerous to Your Health. Avoid second hand smoke Call the 24-hour crisis hotline for domestic abuse at Isis Pro MD Feb 13, 2017 09:19
== END 2017-02-13 18:00 | disposition home or self-care (01) | DRG 765 ==
LOC: H2EB 15:14 → H1EA 20:24
PROVIDERS: ADMIT Obstetrics & Gynecology; ATTEND Obstetrics & Gynecology
PROC: 10D00Z1 Extraction of Products of Conception, Low, Open Approach (ICD-10-PCS; principal; 2017-02-10)
DX: O36.5931 Maternal care for other known or suspected poor fetal growth, third trimester, fetus 1 (principal); O99.324 Drug use complicating childbirth; Z37.2 Twins, both liveborn; O30.033 Twin pregnancy, monochorionic/diamniotic, third trimester; O34.211 Maternal care for low transverse scar from previous cesarean delivery; P03.89 Newborn affected by other specified complications of labor and delivery; F11.10 Opioid abuse, uncomplicated; O99.334 Smoking (tobacco) complicating childbirth; Z3A.34 34 weeks gestation of pregnancy; Z23 Encounter for immunization
CPT/HCPCS: 59025; 80307; 81001; 82805; 85007; 85027; 86850; 86900; 86901; 88307; 90686; 90715; J0690; J1100; J2590; J2795; J7120; Q0163; Q2038